=== PATIENT | female | born 1995 | race Caucasian/White ===

== ENCOUNTER 2022-02-11 00:09 | Day surgery (SDC) | payer BC, SELFPAY ==
[2022-02-06 15:35] VITALS: BMI 24.3
--- NOTE | 2022-02-06 15:37 | SUR.PREOP ---
Report to the Outpatient Waiting Room, entrance under the green pavilion located off [facility], at time __0700 on date _02/11/22 . Planned Procedure Time: _0900 . Time changes happen often and if your time is changed the preop area will call you the afternoon before. - You and your visitor will be asked to self-screen and do not enter if you have any COVID symptoms. - We encourage only one visitor and NO visitors under age 16 are allowed at this time. Your visitor will receive communication by the phone number that is given day of service. - The patient visitor is requested to social distance or may leave the building when not with patient due to restrictions. - A mask is required within the hospital. Patients may have clear liquids (water, carbonated beverages, clear teas, apple juice) until 3 hours prior to surgery with a maximum of 20 ounces. - No food from midnight until time of surgery - Infants may have breast milk until 4 hours before surgery, formula 6 hours prior to surgery. - Children will be allowed to drink immediately following surgery. If applicable, please bring a bottle or sippy cup to assist with drinking. Juice, water, soda, and popsicles are readily available. For infants on formula, please bring formula the day of surgery. Pacifiers are allowed. Take the following medications with a SIP of water the morning of surgery: __bupropion,valcyclovir Medications to discontinue per physician n/a Date to take last dose__n/a Please no make-up, nail danish, hairspray, perfume, deodorant, or body powder the day of surgery. No jewelry (including any body piercings) or valuables the day of surgery, leave them at home. Please take a shower or bath the night before, or the morning of, surgery with an antibacterial soap. Wear comfortable, loose fitting clothing. Children are encouraged to wear pajamas. - Jewelry must be removed prior to entering the operating room. Rings and piercings that are not removed may be cut off. - The hospital will not accept responsibility for valuables. - Please leave all valuables, including medications, at home the day of surgery. If you are going home after surgery, a licensed tour driver must drive you home. - NO public transportation without another adult. - We recommend that an adult stay with you for 24 hours following discharge. - We also recommend that you do not drive, make important decision, drink alcoholic beverages, or take any drugs that were not prescribed by your health care provider for at least 24 hours after your discharge time. For Pediatric surgeries, we recommend two adults accompany the child home. Follow any additional instructions given to you from your surgeon. If you or anyone in your household have experienced Covid symptoms in the past week, please notify your surgeon or the nurse liaison at the phone number below for possible testing. Telephone instructions given to juvenal romero and asked if any additional questions and then verbalized understanding. Patient advised to call surgeon office or pre surgery nurse liaison [phone] if any additional questions.
[2022-02-11] VITALS (7 sets, daily range): BP systolic 109–120; BP diastolic 73–82; PULSE 69–97; RESP 14–16; TEMP 36.1–36.5; O2SAT 100
[2022-02-11] MEDS: ACETAMINOPHEN 500 MG TABLET 1000 MG PO (07:40)
[2022-02-11] MEDS: KETOROLAC 15 MG/ML VIAL (*BKC) IV PUSH (07:46)
[2022-02-11] MEDS: LACTATED RINGERS 1,000 ML 30 ML IV CONT ×2 (07:46→10:48)
--- NOTE | 2022-02-11 07:52 | WPDANESEPPF ---
Anes - Initial Pre Proc Eval Procedure: Operation Date: 02/11/22 09:00 Proposed Procedures p Laparoscopic Right Ovarian Cystectomy - Yuri Silva MD Date/Time: 02/11/22 07:52 Surgeon: Yuri Silva MD Pre Op Diagnosis: dermoid cyst Patient Data Age: 27 Gender: F Height: 1.68 m Weight: 68.18 kg Allergies Allergy/AdvReac Type Severity Reaction Status Date / Time prednisone Allergy Intermediate Nausea and Verified 02/11/22 07:52 Vomiting Home Medications Medication Instructions Recorded Confirmed Type bupropion HCl 100 mg tablet 100 mg PO BID 02/06/22 02/06/22 History valacyclovir 500 mg tablet 500 mg PO DAILY 02/06/22 02/06/22 History Patient hx anesthesia problems: none Family hx anesthesia problems: none Results Review: All pre-operative results and documents have been reviewed as part of the pre-operative evaluation. [facility] Past Medical History Medical History (Updated 02/11/22 @ 07:52 by Shaggy Lomas MD) ADHD (attention deficit hyperactivity disorder) evaluation Surgical History Surgical History (Updated 02/11/22 @ 07:53 by Shaggy Lomas MD) History of D&C Social History Social History Smoking status: Never smoker Alcohol intake: current Drinks per week: 12 Living arrangements: alone Spiritual care concerns: No Anes - Eval Final PreProcedure Day of Procedure 02/11/22 07:52 Patient weight: normal Heart: regular rate and rhythm Lungs: clear to auscultation Airway: Mallampati scale class II Neurological: alert and oriented Last oral intake: >/= 8 hours ASA classification: II Emergent: no Anesthetic plan: proceed Anesthesia type and monitoring: general ETT and standard monitoring Results Review: All pre-operative results and documents have been reviewed as part of the pre-operative evaluation. Informed Consent: The patient's anesthetic plan and its attendant risks and benefits were discussed with the patient/family/POA. Questions were solicited and answers provided to the satisfaction of the patient/family/POA.
--- NOTE | 2022-02-11 08:23 | PM.IMHP ---
H&P: HPI History of Present Illness Date/Time: 02/11/22 08:23 Chief Complaint: 6 cm ovarian cyst Narrative: 27-year-old with 6 cm dermoid cyst. We have agreed to perform ovarian cystectomy. She understands that there are risks. She understands that injuries may occur that resulted in hospitalization, more surgery and severe illness. She understands there is risk of hemorrhage and infection. She denies any nausea, vomiting, fever, chills. She denies any chest pain or shortness of breath. Review of Systems Review of Systems: All systems reviewed & are unremarkable except as noted in HPI and below Constitutional: Constitutional: Denies chills, Denies fatigue, Denies fever(s) and Denies weakness Eyes: Eyes: Denies blurry vision, Denies change in vision, Denies loss of peripheral vision, Denies loss of vision, Denies other visual disturbances and Denies eye pain ENT: Denies vertigo, Denies dizziness, Denies hearing loss, Denies mouth pain, Denies nasal obstruction, Denies neck mass and Denies neck pain Cardiovascular: Cardiovascular: Denies chest pain, Denies diaphoresis, Denies syncope, Denies leg edema and Denies dyspnea Respiratory: Respiratory: Denies chest congestion, Denies cough, Denies hemoptysis, Denies dyspnea and Denies wheezing Gastrointestinal: Gastrointestinal: Denies abdominal pain, Denies constipation, Denies diarrhea, Denies nausea and Denies vomiting Genitourinary: Genitourinary: Denies hematuria, Denies change in libido, Denies nocturia, Denies genital lesions, Denies flank pain and Denies urinary urgency Musculoskeletal: Musculoskeletal: Denies abnormal gait, Denies back pain, Denies myalgias, Denies arthralgias, Denies joint swelling, Denies muscle weakness and Denies neck pain Integumentary/Breasts: Skin/Breast: Denies swelling, Denies breast pain, Denies breast mass, Denies dry skin, Denies nipple discharge, Denies unusual bruising and Denies jaundice Neurologic: Denies Neuro-related abnormal movements, Denies Abnormal speech present, Denies abnormal gait, Denies behavioral changes, Denies confusion, Denies vertigo, Denies dizziness, Denies syncope, Denies loss of vision, Denies memory loss, Denies convulsions and Denies weakness Psychiatric: Psychiatric: Denies abnormal sleep pattern, Denies behavioral changes, Denies change in libido, Denies confusion, Denies depression, Denies anhedonia and Denies memory loss Endocrine: Endocrine: Reports no additional endocrine complaints, Denies change in libido and Denies fatigue Hematologic/Lymphatic: Hematologic/Lymphatic: Reports no additional hematologic/lymphatic complaints Allergic/Immunologic: Allergic/Immunologic: Reports no additional allergic/immunologic complaints and Denies wheezing PMFSH Past Medical History Medical History (Updated 02/11/22 @ 08:27 by Yuri Silva MD) ADHD (attention deficit hyperactivity disorder) evaluation Surgical History Surgical History (Updated 02/11/22 @ 07:53 by Shaggy Lomas MD) History of D&C Social History Social History Smoking status: Never smoker Alcohol intake: current Drinks per week: 12 Living arrangements: alone Spiritual care concerns: No Meds Home Medications and Allergies Home Medications Medication Instructions Recorded Confirmed Type bupropion HCl 100 mg tablet 100 mg PO BID 02/06/22 02/11/22 History valacyclovir 500 mg tablet 500 mg PO DAILY 02/06/22 02/11/22 History Allergies Allergy/AdvReac Type Severity Reaction Status Date / Time prednisone Allergy Intermediate Nausea and Verified 02/11/22 07:52 Vomiting Vital Signs Vital Signs - 24 hr 02/11/22 07:20 Temperature 97.6 F Pulse Rate 91 Respiratory Rate 16 Blood Pressure 116/78 Pulse Oximetry 100 Oxygen Delivery Room Air Exam Const: General: cooperative, healthy appearing, comfortable and no acute distress; No confusion Orientation/consciou
--- NOTE | 2022-02-11 08:27 | WPDHPUPDATE1 ---
History and Physical Update Update Date/Time: 02/11/22 08:27 History and Physical has been reviewed, including an updated exam of the patient. There are NO changes in the patient's condition. Risks, benefits, and alternatives have been discussed and questions answered. Patient agrees to proceed with procedure.
--- NOTE | 2022-02-11 10:35 | W.PM.PROC2 ---
Procedure Note - Detailed Date of Procedure 02/11/22 Pre-op Diagnosis dermoid cyst Post-op Diagnosis Same Procedure Performed Diagnostic laparoscopy Surgeon Yuri Silva MD Anesthesia General Indications Dermoid cyst Findings 6 cm right ovarian dermoid cyst, otherwise normal pelvic anatomy. Description of Procedure The patient was taken to the operating room. She was prepped and draped in the dorsal lithotomy position after induction general anesthesia. A 5 mm incision was made with a scalpel on the abdominal skin in the left upper quadrant of the abdomen. A 5 mm trocar was inserted into the intra-abdominal cavity under direct visualization the scope. In the same fashion a 11 mm left lower quadrant trocar was inserted and a 11 mm infraumbilical trocar was inserted. Right ovarian cystectomy was performed. Sharp and blunt dissection were used to remove the dermoid. It was with from the viable ovary. Dermoid was the proximal portion of the ovary, proximal to the cornua of the uterus. Cautery was used to make it hemostatic. Was taken out through an endobag in the left lower quadrant. The pelvis was irrigated. The pneumoperitoneum was reduced. The trocars were removed. Skin was closed with subcuticular 4 micro. The patient's incisions were covered with Dermabond. She was taken recovery room in stable condition. Sponge lap and needle counts were correct x2. Estimated Blood Loss -5.0 Urine Output -150.0 Complications No immediate complications Condition Stable Disposition Same day
[2022-02-11] MEDS: oxyCODONE HCL (*CRX) 5 MG TAB IR PO (11:21)
== END 2022-02-11 12:06 | disposition home or self-care (01) ==
PROVIDERS: Visit Provider Obstetrics & Gynecology
PROC: (CPT 49320; principal; 2022-02-11 09:00)
DX: D27.0 Benign neoplasm of right ovary (principal); F90.9 Attention-deficit hyperactivity disorder, unspecified type
CPT/HCPCS: 58662; 88305; A9270; J1100; J1170; J1885; J2250; J2405; J2704; J2710; J3010; J7030; J7120